=== PATIENT | female | born 1990 | race Two or more races ===

== ENCOUNTER → 2024-06-28 | Outpatient (CLI) | payer OTHER, SELFPAY ==
--- NOTE | 2024-06-28 10:35 | XR_ITS ---
Examination: Hand, left 3 views Technique: Hand AP, oblique, lateral 3 views Date and time of exam: June 28, 2024 1058 hours INDICATIONS: Left hand pain beginning 2 years ago. FINDINGS: Adequate bone density. No fracture or dislocation No erosive or other significant arthritic change IMPRESSION: No erosive or other significant arthritic change
--- NOTE | 2024-06-28 10:35 | XR_ITS ---
Examination: Wrist, left 3 views Technique: Wrist AP, oblique, lateral 3 views Date and time of exam: June 28, 2024 at 1058 hours INDICATIONS: Left wrist pain beginning 2 years ago. FINDINGS: No fracture or dislocation. No erosive arthritis Minimal osteoarthritis first carpometacarpal joint IMPRESSION: Minimal osteoarthritis first carpometacarpal joint
== END | disposition home or self-care (01) ==
PROVIDERS: PCP Nurse Practitioner Family
DX: M18.12 Unilateral primary osteoarthritis of first carpometacarpal joint, left hand (principal)
CPT/HCPCS: 73110; 73130